=== PATIENT | female | born 1965 | race Caucasian/White ===

== ENCOUNTER 2018-10-27 10:43 | Emergency (ER) | payer OTHER ==
[~2018-10-27] VITALS: Ht 162.6 cm; Wt 56.7 kg
[2018-10-27] MEDS ORDERED: PROGESTERONE (10:53)
[2018-10-27] MEDS ORDERED: LEVO50TA PO (10:53)
[2018-10-27 11:09] LABS: *BILIRUBIN,URIN NEGATIVE (NEGATIVE); *CLARITY,URINE CLEAR (CLEAR); *COLOR,URINE YELLOW (YELLOW); *KETONES,URINE NEGATIVE (NEGATIVE); *UROBILINOGEN,URINE 0.2 E.U./dl (NORMAL); LEUKOCYTE ESTERASE ,URINE NEGATIVE (NEGATIVE); NITRITE, URINE NEGATIVE (NEGATIVE); PH,URINE 7.5 (5.0-8.0); UGLUCOSE NEGATIVE (NEGATIVE)
[2018-10-27 11:10] LABS: *BLOOD, URINE TRACE (NEGATIVE)
[2018-10-27 11:11] LABS: *URINE HCG, QUAL NEGATIVE (NEGATIVE)
[2018-10-27 11:16] LABS: WBC,URINE 0-3 /HPF (0-3)
[2018-10-27 11:17] LABS: BACTERIA,URINE NONE SEEN /HPF (NONE SEEN); SQUAMOUS EPITHELIAL CELL,UR MODERATE /HPF (NONE SEEN)
--- NOTE | 2018-10-27 11:18 | NUR ---
Dr Decker at the bedside for MSE.
[2018-10-27] MEDS ORDERED: IBUPROFEN 800 MG TABLET ONE (11:29)
[2018-10-27] MEDS ORDERED: IBUPROFEN 800 MG TABLET PO ONE (11:30)
--- NOTE | 2018-10-27 11:33 | NUR ---
Patient discharged to home in stable conditon. Written and verbal after care instructions given. Patient verbalizes understanding of instructions.
[2018-10-27 11:34] VITALS: BP 139/89
== END 2018-10-27 11:35 | disposition home or self-care (01) ==
LOC: ER 10:43
DX: S30.0XXA Contusion of lower back and pelvis, initial encounter (principal); Z79.899 Other long term (current) drug therapy; W01.0XXA Fall on same level from slipping, tripping and stumbling without subsequent striking against object, initial encounter; Y93.89 Activity, other specified; Y92.89 Other specified places as the place of occurrence of the external cause; Y99.8 Other external cause status
CPT/HCPCS: 84703; A4663

== ENCOUNTER 2019-10-14 20:38 | Emergency (ER) | payer BC, OTHER ==
[~2019-10-14] VITALS: Ht 165.1 cm; Wt 56.7 kg
[~2019-10-14 20:38] MED LIST: LEVO50TA PO; PROGESTERONE
--- NOTE | 2019-10-14 20:45 | NUR ---
Patient ambulated with stable gait. A/Ox2. Patient is unable to speak in full sentences. When asked who the President of the [place] was, there was a long pause of approx 30 secs before she was able to answer correctly. Patient BIB boyfriend. According to her boyfriend, they were drinking alcohol at home when suddenly he noticed that she stopped talking and became aphasic. Patient noted to have a left facial droop, and hand intermittent spasm/contractures. NIHSS 3 upon initial assessment. Respiratory even and unlabored, no cough no sob, no resp distress. Patient in bed at lowest position, patient placed on manager monitoring, and safety precautions implemented per protocol.
[2019-10-14 21:01] LABS: BASOPHILS # (AUTO) 0.1 K/uL (0.0-8.0); BASOPHILS % (AUTO) 0.7 % (0.0-2.0); EOSINOPHILS # (AUTO) 0.2 K/uL (0.0-0.7); EOSINOPHILS % (AUTO) 2.9 % (0.0-7.0); HEMATOCRIT 39.1 % (31.2-41.9); HEMOGLOBIN 13.2 g/dL (10.9-14.3); LYMPHOCYTES # (AUTO) 3.2 K/uL (20.0-40.0); LYMPHOCYTES % (AUTO) 43.7 % (20.5-51.5); MEAN CORPUSCULAR HEMOGLOBIN 34.2 uug (24.7-32.8); MEAN CORPUSCULAR HGB CONC 34 g/dL (32.3-35.6); MEAN CORPUSCULAR VOLUME 100.8 fL (75.5-95.3); MONOCYTES # (AUTO) 0.7 K/uL (2.0-10.0); MONOCYTES % (AUTO) 9.1 % (0.0-11.0); NEUTROPHILS # (AUTO) 3.2 K/uL (1.8-8.9); NEUTROPHILS % (AUTO) 43.6 % (38.5-71.5); PLATELET COUNT (AUTO) 211 K/uL (179-408); RED BLOOD CELL COUNT(AUTO) 3.87 MIL/uL (3.63-4.92); WHITE BLOOD COUNT (AUTO) 7.3 K/uL (3.8-11.8)
[2019-10-14 21:09] LABS: CARBON DIOXIDE 28 mmol/L (21-32); CHLORIDE 101 mmol/L (98-107); CREATININE 1.3 mg/dL (0.6-1.3); GLUCOSE 94 mg/dL (74-106); POTASSIUM 4.4 mmol/L (3.5-5.1); UREA NITROGEN, BLOOD 13 mg/dL (7-18)
--- NOTE | 2019-10-14 21:09 | NUR ---
DR RIZZO SPOKE WITH DR STACK TELE NEUROLOGIST.
[2019-10-14 21:15] LABS: ALANINE AMINOTRANSFERASE 19 U/L (14-59); ALKALINE PHOSPHATASE 40 U/L (50-136); ASPARTATE AMINOTRANSFERASE 12 U/L (15-37); BILIRUBIN,DIRECT < 0.1 mg/dL (0.0-0.2); BILIRUBIN,TOTAL 0.2 mg/dL (0.2-1.0); CHOLESTEROL 253 mg/dL (<200); HDL CHOLESTEROL 93 mg/dL (40-60); TRIGLYCERIDES 240 MG/DL (30-150)
[2019-10-14] MEDS ORDERED: IV NORMAL SALINE 250 ML IV ONE (21:34)
[2019-10-14] MEDS ORDERED: IOHEXOL 350 100 ML INFUS..BTL ONE (21:34)
[2019-10-14] MEDS ORDERED: SWABABLE VALVE TRANSFER SET EA MC ONE (21:34)
[2019-10-14 22:50] VITALS: BP 125/96
--- NOTE | 2019-10-14 22:50 | NUR ---
Patient discharged to home in stable condition. Written and verbal after care instructions given. Patient verbalizes understanding of instructions. Stressed follow up or return to ER for worsening s/s. IV removed. Catheter intact and site benign. Pressure and 4x4 gauze applied to site. No bleeding noted.
== END 2019-10-14 22:51 | disposition home or self-care (01) ==
LOC: ER 20:39
DX: R41.82 Altered mental status, unspecified (principal); R29.700 NIHSS score 0; F10.129 Alcohol abuse with intoxication, unspecified; Y90.0 Blood alcohol level of less than 20 mg/100 ml; E78.5 Hyperlipidemia, unspecified; G31.9 Degenerative disease of nervous system, unspecified
CPT/HCPCS: 36415; 70450; 70496; 70498; 71045; 80048; 80061; 80076; 80307; 82962; 84484; 85025; 85730; 93005; 99291; Q9967; 70030-TC; A4663; G0480; J7050